=== PATIENT | female | born 1965 | race Caucasian/White ===

== ENCOUNTER 2022-03-04 07:00 | Day surgery (SDC) | payer OTHER ==
[2022-02-27 14:52] VITALS: BMI 22.2
[~2022-03-04 07:00] MED LIST: ACETAMINOPHEN TAB 500 MG TAB PO PRN; HEPARIN SODIUM,PORCINE/PF 5,000 UNIT/0.5 ML SYRINGE SQ PRN; Pre Op ABX Message 1 EACH MISC MISCELLANE ONE
[2022-03-04] MEDS ORDERED: LACTATED RINGERS 1,000 ML IV SCH (07:16)
[2022-03-04] MEDS ORDERED: BUPIVACAIN-EPI 0.25%-1:200,000 30 ML VIAL SQ ONE ×2 (07:25→08:05)
[2022-03-04 07:30] VITALS: TEMP 97.7
[2022-03-04] MEDS ORDERED: ONDANSETRON 4 MG/2 ML VIAL ONE (07:32)
[2022-03-04] MEDS ORDERED: KETAMINE 10 MG/ML 20 ML VIAL ONE (07:38)
[2022-03-04] MEDS ORDERED: PROPOFOL 10 MG/ML 20 ML VIAL IV ONE (07:38)
[2022-03-04] MEDS ORDERED: MIDAZOLAM 2 MG/2 ML VIAL ONE (07:38)
[2022-03-04] MEDS ORDERED: ONDANSETRON 4 MG/2 ML VIAL IVP ONE (07:38)
[2022-03-04] MEDS ORDERED: fentaNYL (PF) 50 MCG/ML 2 ML AMP ONE (07:38)
--- NOTE | 2022-03-04 07:48 | P.GSHP ---
History of Present Illness H&P Date: 03/04/22 Chief Complaint: Multiple right arm lipomas Is a 56-year-old female who presents today for excision of multiple right arm lipomas. Patient has had lipomas present all over body. Patient is developed tender pressure points due to lipomas in her right arm. She presents today for excision of lipomas. Patient's lipomas measured approximately 1-3 cm each there are multiple lipomas on her upper and lower arms. Past Medical History Past Medical History: Hypertension Additional Past Medical History / Comment(s): Vertigo. History of Any Multi-Drug Resistant Organisms: None Reported Past Surgical History: Orthopedic Surgery Additional Past Surgical History / Comment(s): Lipomas removed, right knee surgery, wisdom teeth extracted. Past Anesthesia/Blood Transfusion Reactions: Motion Sickness Additional Past Anesthesia/Blood Transfusion Reaction / Comment(s): Vertigo. Past Psychological History: No Psychological Hx Reported Smoking Status: Current every day smoker Past Alcohol Use History: Rare Additional Past Alcohol Use History / Comment(s): Has been smoking for 30 yrs, 1/2 ppd. Past Drug Use History: None Reported - Past Family History Mother Family Medical History: No Reported History Medications and Allergies Home Medications Medication Instructions Recorded Confirmed Type Cyclobenzaprine [Flexeril] 10 mg PO DIRECTED PRN 02/27/22 03/04/22 History Lisinopril-Hctz 10-12.5 mg 1 tab PO QAM 02/27/22 03/04/22 History [Zestoretic 10-12.5] Meloxicam [Mobic] 15 mg PO DAILY PRN 02/27/22 03/04/22 History PARoxetine HCL [Paxil] 20 mg PO QAM 02/27/22 03/04/22 History Zolpidem Tartrate [Ambien] 5 mg PO HS PRN 02/27/22 03/04/22 History Allergies Allergy/AdvReac Type Severity Reaction Status Date / Time hydromorphone [From Dilaudid] Allergy Nausea & Verified 03/04/22 07:24 Vomiting Surgical - Exam Vital Signs Temp Pulse Resp BP Pulse Ox 97.7 F 96 18 161/91 98 03/04/22 07:28 03/04/22 07:28 03/04/22 07:28 03/04/22 07:28 03/04/22 07:28 - General well developed, well nourished, no distress - Eyes PERRL - ENT normal pinna - Neck no masses - Respiratory normal expansion - Cardiovascular Rhythm: regular - Abdomen Abdomen: soft, non tender - Integumentary Multiple lipomas right arm. The lipomas measured 1-3 cm in diameter. They're present on the upper and lower arm. Assessment and Plan Assessment: Right arm lipomas. Patient will undergo excision.
--- NOTE | 2022-03-04 08:23 | P.OP ---
Date of Procedure: 03/04/22 Preoperative Diagnosis: Multiple right arm lipoma Postoperative Diagnosis: Multiple right arm lipomas Procedure(s) Performed: Excision of multiple right arm lipomas Anesthesia: MAC Surgeon: Polo Novoa Estimated Blood Loss (ml): 5 Pathology: other (Multiple right arm lipomas) Condition: stable Disposition: PACU Description of Procedure: The patient was placed the operative table in supine position. She received IV sedation. Her right arm was prepped and draped usual sterile fashion. The patient had multiple lipomas over her right arm. 5 of the basis of holes were marked in the preoperative hold area there were located on the right lower medial and lateral aspect of the right arm. Each lipoma was anesthetized 1% local Xylocaine. The lipomas measured prostate 1-3 cm each. The lipomas were dissected free after the skin was incised with blunt and sharp dissection electrocautery.. The skin was closed interrupted 3-0 Monocryl suture. Each lipoma was dissected free and sent to pathology in identical fashion. Dermabond was applied. Patient top she will was sent to recovery room in stable condition..
[2022-03-04] MEDS ORDERED: ENALAPRILAT 1.25 MG/ML 1 ML VIAL IV ONE (08:53)
[2022-03-04] MEDS ORDERED: ENALAPRILAT 1.25 MG/ML 1 ML VIAL ONE (08:54)
[2022-03-04 09:02] VITALS: RESP 16
[2022-03-04 09:15] VITALS: BP 165/91; PULSE 87
== END 2022-03-04 09:31 | disposition home or self-care (01) ==
LOC: OR 07:00
PROVIDERS: ATTEND Surgery
DX: D17.21 Benign lipomatous neoplasm of skin and subcutaneous tissue of right arm (principal); I10 Essential (primary) hypertension; F17.210 Nicotine dependence, cigarettes, uncomplicated; R42 Dizziness and giddiness; Z98.890 Other specified postprocedural states; Z86.59 Personal history of other mental and behavioral disorders; Z88.5 Allergy status to narcotic agent; Z79.899 Other long term (current) drug therapy
CPT/HCPCS: 25073; 88304; J2250; J2405; J3010; J2704; J1644

== ENCOUNTER → 2022-04-19 | Outpatient (CLI) | payer OTHER ==
--- NOTE | 2022-04-19 13:32 | MR ---
EXAMINATION TYPE: MR lumbar spine wo con DATE OF EXAM: 04/19/2022 11:56 AM COMPARISON: Lumbar radiograph on 422 10/15/2021.. CLINICAL INDICATION:Female, 57 years old with history of M47.26 Lumbar scoliosis with lumbar radiculo brisa; TECHNIQUE: Multi planar, multi sequence imaging was performed utilizing: T1-weighted, T2-weighted, a nd turbo inversion recovery imaging of the lumbar spine. IV Contrast: None FINDINGS: Alignment: The lumbar vertebral bodies have preserved heights with straightening of the spine. Cord: The conus medullaris and the distal spinal cord appear unremarkable with regards to their signa l intensity and morphology. Bones/Discs: Multilevel Modic endplate changes are noted throughout the spine. Probable L4 vertebral body hemangioma. Reactive bony edema at the adjoining endplates of L3 and L4. Multilevel degenerative disc disease is noted and most pronounced at the L3-L4. Multilevel disc desiccation is present. L1-L2: No significant disc pathology. Spinal canal is patent.. Facet joint arthropathy with mild neur al foraminal stenosis. L2-L3: Disc bulge and facet joint arthropathy without significant canal stenosis and mild bilateral n eural foraminal stenosis. L3-L4: Disc bulge and facet joint arthropathy with mild spinal canal stenosis and moderate bilateral neural foraminal stenosis. L4-L5: Disc bulge and facet joint arthropathy with mild spinal canal stenosis and mild to moderate bi lateral neural foraminal stenosis. L5-S1: No significant spinal canal stenosis. Facet arthropathy with moderate to severe right and mild left neural foraminal stenosis Other findings: Atherosclerosis of the arterial vasculature. IMPRESSION: 1. No definitive evidence of disc herniation or significant spinal canal stenosis. 2. Multilevel disc degeneration with associated osteoarthritic changes with scattered neural foramin al stenosis, worse at right L5-S1 with moderate to severe neural foraminal stenosis.
== END | disposition home or self-care (01) ==
LOC: MERGE 02-05 11:15 → RADMRIMAIN 11:08
PROVIDERS: ATTEND Nurse Practitioner Family
DX: M51.37 Other intervertebral disc degeneration, lumbosacral region (principal); M47.816 Spondylosis without myelopathy or radiculopathy, lumbar region; M48.061 Spinal stenosis, lumbar region without neurogenic claudication
CPT/HCPCS: 72148

== ENCOUNTER 2022-05-22 06:37 | Day surgery (SDC) | payer OTHER ==
[2022-05-20 11:20] VITALS: BMI 22.3
[2022-05-22] MEDS ORDERED: MIDAZOLAM 2 MG/2 ML VIAL IV PRN (06:40)
[2022-05-22] MEDS ORDERED: DEXAMETHASONE SOD PHOSPHATE 4 MG/ML 1 ML VIAL IV ONE (06:40)
[2022-05-22] MEDS ORDERED: SCOPOLAMINE 1 MG/72 HR PATCH TRANSDERM ONE (06:40)
[2022-05-22] MEDS ORDERED: ONDANSETRON 4 MG/2 ML VIAL IVP ONE (06:40)
[2022-05-22] MEDS ORDERED: LACTATED RINGERS 1,000 ML IV SCH (06:40)
[2022-05-22] MEDS ORDERED: fentaNYL (PF) 50 MCG/ML 2 ML AMP IV PRN (07:00)
[2022-05-22] MEDS ORDERED: LIDOCAINE 1% (10MG/ML) FOR IV START INTRADERMA ONE (07:35)
[2022-05-22] MEDS ORDERED: PHENYLEPHRINE-0.9% NACL SYG 1,000 MCG/10 ML SYRINGE ONE (08:06)
[2022-05-22] MEDS ORDERED: LIDOCAINE 2% INJ 20 MG/ML (2 ML VIAL) ONE (08:06)
[2022-05-22] MEDS ORDERED: MIDAZOLAM 2 MG/2 ML VIAL ONE (08:06)
[2022-05-22] MEDS ORDERED: fentaNYL (PF) 50 MCG/ML 2 ML AMP ONE (08:06)
[2022-05-22] MEDS ORDERED: PROPOFOL 10 MG/ML 20 ML VIAL IV ONE (08:06)
[2022-05-22] MEDS ORDERED: LACTATED RINGERS 1,000 ML IV ONE (08:09)
[2022-05-22] MEDS ORDERED: SODIUM CHLORIDE 0.9% 50 ML with ceFAZolin 2,000 MG IV ONE ×2 (08:22)
[2022-05-22] MEDS ORDERED: BUPIVACAIN-EPI 0.25%-1:200,000 30 ML VIAL SQ ONE (08:23)
--- NOTE | 2022-05-22 08:41 | P.GSHP ---
History of Present Illness H&P Date: 05/22/22 Chief Complaint: Multiple left lower arm lipomas Is a 57-year-old female who has issues with lipomas all over body. Patient presents today for excision of 6 lipomas over left lower arm. The lipomas measured 1-3 cm in diameter. Past Medical History Past Medical History: Hypertension Additional Past Medical History / Comment(s): Vertigo. MULTIPLE LIPOMAS History of Any Multi-Drug Resistant Organisms: None Reported Past Surgical History: Orthopedic Surgery Additional Past Surgical History / Comment(s): Lipomas removed, right knee surgery, wisdom teeth extracted. Past Anesthesia/Blood Transfusion Reactions: Motion Sickness Additional Past Anesthesia/Blood Transfusion Reaction / Comment(s): Vertigo. Smoking Status: Current every day smoker - Past Family History Mother Family Medical History: Cancer Medications and Allergies Home Medications Medication Instructions Recorded Confirmed Type Cyclobenzaprine [Flexeril] 10 mg PO DIRECTED PRN 02/27/22 05/20/22 History Lisinopril-Hctz 10-12.5 mg 1 tab PO QAM 02/27/22 05/20/22 History [Zestoretic 10-12.5] Meloxicam [Mobic] 15 mg PO DAILY PRN 02/27/22 05/20/22 History PARoxetine HCL [Paxil] 20 mg PO QAM 02/27/22 05/20/22 History Zolpidem Tartrate [Ambien] 5 mg PO HS PRN 02/27/22 05/20/22 History Allergies Allergy/AdvReac Type Severity Reaction Status Date / Time hydromorphone [From Dilaudid] Allergy Nausea & Verified 05/22/22 07:16 Vomiting Surgical - Exam Vital Signs Temp Pulse Resp BP Pulse Ox 97.7 F 96 16 141/93 99 05/22/22 07:35 05/22/22 07:35 05/22/22 07:35 05/22/22 07:35 05/22/22 07:35 - General well developed, well nourished, no distress - Eyes PERRL - ENT normal pinna - Neck no masses - Respiratory normal expansion - Cardiovascular Rhythm: regular - Abdomen Abdomen: soft, non tender - Integumentary Multiple left lower arm lipomas. The lipomas around the lateral aspect left arm. It measured 1-3 cm diameter. Assessment and Plan Assessment: Multiple left arm lipomas. Patient will undergo excision.
--- NOTE | 2022-05-22 08:44 | P.OP ---
Date of Procedure: 05/22/22 Preoperative Diagnosis: Left arm lipomas Postoperative Diagnosis: Left arm lipoma 6 Procedure(s) Performed: Excision of left arm lipoma 6 Anesthesia: CECILIAA Surgeon: Polo Novoa Estimated Blood Loss (ml): 5 Pathology: other (Left arm lipoma 6) Condition: stable Disposition: PACU Description of Procedure: The patient's placed on the operative table in supine position. She received LMA general anesthesia. Her left arm was prepped and draped in the usual sterile fashion. Patient multiple lipomas of her left lower arm. The lipomas were on the dorsal surface. The lipomas measured prostate 1-3 cm. The skin incision sites were anesthetized 1% local Xylocaine. And then the lipomas were dissected in identical fashion. The skin was incised at each lipoma site. The lipoma was then dissected free using blunt and sharp dissection with cautery. The skin was then closed with 3-0 Monocryl suture. Dermabond was applied. This was done in identical fashion for each lipoma. The specimens of pathology. Patient tolerated the procedure well.
[2022-05-22 08:52] VITALS: TEMP 97
[2022-05-22 09:28] VITALS: RESP 18
[2022-05-22 09:44] VITALS: BP 157/95; PULSE 87
== END 2022-05-22 09:55 | disposition home or self-care (01) ==
LOC: OR 06:37
PROVIDERS: ATTEND Surgery
DX: D17.22 Benign lipomatous neoplasm of skin and subcutaneous tissue of left arm (principal); I10 Essential (primary) hypertension; F17.200 Nicotine dependence, unspecified, uncomplicated; Z98.890 Other specified postprocedural states; Z79.899 Other long term (current) drug therapy; Z79.1 Long term (current) use of non-steroidal anti-inflammatories (NSAID); Z88.5 Allergy status to narcotic agent
CPT/HCPCS: 88304; 11401; J2250; J1100; J2405; J0690; J3010; J2370; J2704; J1644; J2001

== ENCOUNTER 2022-07-18 18:48 | Emergency (ER) | payer OTHER ==
[2022-07-18 19:04] VITALS: RESP 18; TEMP 98.6
[2022-07-18] MEDS ORDERED: LIDOCAINE 5% PATCH TOPICAL ONE (19:16)
--- NOTE | 2022-07-18 19:25 | ED ---
Fall HPI - General Chief Complaint: Head Injury Stated Complaint: Fall,Head Injury Time Seen by Provider: 07/18/22 19:00 Source: patient, RN notes reviewed Mode of arrival: ambulatory - History of Present Illness Initial Comments: This is a 57-year-old female who presents to the emergency department for a fall. States that she slipped on ice and fell down approximately 4 steps. She landed on her left side, states that she hit the left side of her head. Also has pain to the left ribs, left hip, and lower back. She is still able to walk without difficulty. She has not taken anything to treat her pain at this time. Denies any loss of consciousness. She is not on any blood thinners. Denies any fevers, chills, sore throat, cough, dyspnea, chest pain, palpita tions, nausea, vomiting, or diarrhea. MD Complaint: fall Place Fall Occurred: home Loss of Consciousness: none Prolonged Down Time?: no Symptoms Prior to Fall: none Context: tripped/slipped - Related Data Home Medications Medication Instructions Recorded Confirmed Cyclobenzaprine [Flexeril] 10 mg PO DIRECTED PRN 02/27/22 05/20/22 Lisinopril-Hctz 10-12.5 mg 1 tab PO QAM 02/27/22 05/20/22 [Zestoretic 10-12.5] Meloxicam [Mobic] 15 mg PO DAILY PRN 02/27/22 05/20/22 PARoxetine HCL [Paxil] 20 mg PO QAM 02/27/22 05/20/22 Zolpidem Tartrate [Ambien] 5 mg PO HS PRN 02/27/22 05/20/22 Previous Rx's Medication Instructions Recorded Acetaminophen-Codeine 300-30mg 1 tab PO Q6H PRN 3 Days #12 tablet 07/18/22 [Tylenol w/codeine #3] Meclizine HCl [Dramamine] 25 mg PO Q8H PRN #20 tab 07/18/22 Ondansetron Odt [Zofran Odt] 4 mg PO Q8HR PRN #15 tab 07/18/22 Allergies Allergy/AdvReac Type Severity Reaction Status Date / Time hydromorphone [From Dilaudid] Allergy Nausea & Verified 07/18/22 19:05 Vomiting Review of Systems ROS Statement: Those systems with pertinent positive or pertinent negative responses have been documented in the HPI. ROS Other: All systems not noted in ROS Statement are negative. Past Medical History Past Medical History: Hypertension Additional Past Medical History / Comment(s): Vertigo. MULTIPLE LIPOMAS History of Any Multi-Drug Resistant Organisms: None Reported Past Surgical History: Orthopedic Surgery Additional Past Surgical History / Comment(s): Lipomas removed, right knee surgery, wisdom teeth extracted. Past Anesthesia/Blood Transfusion Reactions: Motion Sickness Additional Past Anesthesia/Blood Transfusion Reaction / Comment(s): Vertigo. Past Psychological History: No Psychological Hx Reported Smoking Status: Current every day smoker Past Alcohol Use History: Occasional Past Drug Use History: None Reported - Past Family History Mother Family Medical History: Cancer General Exam Limitations: no limitations General appearance: alert, in no apparent distress Head exam: Present: other (Minor abrasion and hematoma to the left side of the forehead. No active bleeding.) Eye exam: Present: normal appearance, PERRL, EOMI. Absent: scleral icterus, conjunctival injection, periorbital swelling ENT exam: Present: TM's normal bilaterally, normal external ear exam Respiratory exam: Present: normal lung sounds bilaterally. Absent: respiratory distress, wheezes, rales, rhonchi, stridor Cardiovascular Exam: Present: regular rate, normal rhythm, normal heart sounds. Absent: systolic murmur, diastolic murmur, rubs, gallop, clicks Extremities exam: Present: other (Mild tenderness to palpation of the left hip. No obvious deformities. No internal or external rotation of the leg. Full active and passive range of motion. Normal gait. 2+ dorsalis pedis and tibialis posterior pulses.) Back exam: Present: other (Tenderness to palpation over the right side of the lumbosacral spine. No overlying ecchymosis.) Neurological exam: Present: alert, oriented X3, CN II-XII intact Psychiatric exam: Present: normal affect, normal mood Skin exam: Present: warm, dry, intact, normal color. Absent: rash Course Vital Signs 07/18/22 07/18/22 18:57 21:23 Temperature 98.6 F Pulse Rate 112 H 95 Respiratory 18 18 Rate Blood Pressure 161/98 165/90 O2 Sat by Pulse 100 99 Oximetry Medical Decision Making - Medical Decision Making This is a 57-year-old female who presents to the emergency department for a fall. Was pt. sent in by a medical professional or institution? @ -No Did you speak to anyone other than the patient for history? @ -None Did you review nursing and triage notes? @ -Yes, and I agree, it is accurate with regards to the patient's symptoms. Were old charts reviewed? @ -No Differential Diagnosis? @ -Differential Diagnosis Head Injury: Contusion, hematoma, intracranial hemorrhage, skull fracture, whiplash, concussion, this is not meant to be an all-inclusive list. -Differential Back Pain: Strain, fracture, contusion, herniated disc, this is not meant to be an all- inclusive list. X-rays interpreted by me (1pt min.)? @ -X-ray of the lumbosacral spine, left hip, and left ribs obtained. My interpretation identifies no acute fractures or dislocations on any of the imaging. CT interpreted by me (1pt min.)? @ -Computed tomography scan of the brain and c-spine obtained. My interpretation identifies no evidence of an acute intracranial hemorrhage, skull fracture, or cervical spine fracture. What testing was considered but not performed? (CT, X-rays, U/S, labs)? Why? @ -None What meds were considered but not given? Why? @ -I offered ibuprofen or Tylenol, however the patient declined because she states that she has not eaten and cannot take the medication on an empty stomach. Did you discuss the management of the patient with other professionals? @ -No Did you reconcile home meds? @ -No Was smoking cessation discussed for >3mins.? @ -No Was critical care preformed (if so, how long)? @ -No Were there social determinants of health that impacted care today? How? (Homelessness, low income, unemployed, alcoholism, drug addiction, transportation, low edu. Level, literacy, decrease access to med. care, nursing home, rehab)? @ -No Was there de-escalation of care discussed even if they declined? (Discuss DNR or withdrawal of care, Hospice)? @ -No What co-morbidities impacted this encounter? (DM, HTN, Smoking, COPD, CAD, Cancer, CVA, Hep., AIDS, mental health diagnosis, sleep apnea, morbid obesity)? @ -None Was patient admitted / discharged? @ -Discharged. X-rays of the lumbosacral spine, left hip, and left ribs obt ained revealing no acute process. Computed tomography scan of the brain and c- spine obtained as well, also revealing no acute findings. However, the computed tomography scan did identify bilateral parenchymal changes on the lungs and advised nonurgent computed tomography scan follow-up. Findings discussed with the patient, and advised that she discuss follow-up imaging with her primary care provider. She denies any shortness of breath or history of asthma, COPD, or other respiratory illnesses. Lidocaine patch was applied to the lower back with little to no relief in symptoms. She declined any ibuprofen or Tylenol at this time. Patient is instructed to alternate with ibuprofen and Tylenol at home for pain relief and to apply ice to the areas of pain for 10-15 minutes every 2-3 hours for the first 2-3 days followed by heat there afterwards. Given that she has multiple injuries and areas of pain, I'm willing to prescribe a 3 day course of Tylenol #3. Advised she take this sparingly when her pain is the most severe. Additionally, patient states that she started feeling like she was getting vertigo in the examination room. She describes this as a room spinning sensation that is worse with head movements. States that she has had vertigo flareups in the past and this feels the same. She was subsequently given a dose of Antivert and Zofran and a prescription for Zofran and Antivert were provided as well with dosing instructions reviewed. Advised that the Antivert and Tylenol #3 may be sedating and she should take them at night until she knows how they affect her and avoid driving or operating machinery when taking them. We also discussed trying the half somersault maneuver by Dr. Jesi Carvajal for additional vertigo treatment options. Undiagnosed new problem with uncertain prognosis? @ -None Drug Therapy requiring intensive monitoring for toxicity (Heparin, Nitro, Insulin, Cardizem)? @ -None Were any procedures done? @ -None Diagnosis/symptom? @ -Closed head injury Acute, or Chronic, or Acute on Chronic? @ -Acute Uncomplicated (without systemic symptoms) or Complicated (systemic symptoms)? @ -Uncomplicated Side effects of treatment? @ -None Exacerbation, Progression, or Severe Exacerbation] @ -Not applicable Poses a threat to life or bodily function? @ -No Diagnosis/symptom? @ -Fall Acute, or Chronic, or Acute on Chronic? @ -Acute Uncomplicated (without systemic symptoms) or Complicated (systemic symptoms)? @ -Uncomplicated Side effects of treatment? @ -None Exacerbation, Progression, or Severe Exacerbation] @ -Not applicable Poses a threat to life or bodily function? @ -No Diagnosis/symptom? @ -Lower back contusion Acute, or Chronic, or Acute on Chronic? @ -Acute Uncomplicated (without systemic symptoms) or Complicated (systemic symptoms)? @ -Uncomplicated Side effects of treatment? @ -None Exacerbation, Progression, or Severe Exacerbation] @ -Not applicable Poses a threat to life or bodily function? @ -This may impact her function depending on her level of pain. Diagnosis/symptom? @ -Vertigo Acute, or Chronic, or Acute on Chronic? @ -Acute Uncomplicated (without systemic symptoms) or Complicated (systemic symptoms)? @ -Uncomplicated Side effects of treatment? @ -None Exacerbation, Progression, or Severe Exacerbation] @ -Not applicable Poses a threat to life or bodily function? @ -No Return precautions reviewed in depth, the patient is instructed to return to the emergency department with any new, worsening, or concerning symptoms. Patient verbalized understanding. This case was discussed in detail with the attending ED physician, Dr. Vazquez. Presentation, findings, and treatment plan discussed in detail as well. - Radiology Data Radiology results: report reviewed, image reviewed Disposition Clinical Impression: Closed head injury, Fall, Contusion of lower back, Vertigo Disposition: HOME SELF-CARE Instructions (If sedation given, give patient instructions): Vertigo (ED), Head Injury (ED), Benign Paroxysmal Positional Vertigo (ED) Additional Instructions: Return to the emergency department with any new, worsening, or concerning symptoms. Apply ice to the injured areas for 10-15 minutes every 2-3 hours for the first 2-3 days followed by heat there afterwards. Alternate with ibuprofen and Tylenol as needed for pain relief and take the Tylenol #3 sparingly when your pain is the most severe. You can take the meclizine every 6-8 hours as needed for symptoms of vertigo. You can also look up the half somersault maneuver by Dr. Jesi Carvajal on YouTube for additional treatment options. Be aware that the Meclizine may be sedating and you should take it at night until you know how it affects you and avoid driving or operating machinery when taking this. The same is true for the Tylenol #3 as well. The Zofran can be used up to every 8 hours as needed for nausea and vomiting. You can also purchase [id number] lidocaine patches for additional relief. Follow up with your primary care provider in 1-2 days. Prescriptions: Meclizine HCl [Dramamine] 25 mg PO Q8H PRN #20 tab PRN Reason: Vertigo Acetaminophen-Codeine 300-30mg [Tylenol w/codeine #3] 1 tab PO Q6H PRN 3 Days #12 tablet PRN Reason: Pain Ondansetron Odt [Zofran Odt] 4 mg PO Q8HR PRN #15 tab PRN Reason: Nausea And Vomiting Is patient prescribed a controlled substance at d/c from ED?: Yes When asked, does pt state using other controlled substances?: Yes If prescribed controlled substance>3 days was MAPS reviewed?: Prescribed <3 Days Referrals: Ngoc Ambrocio MD [Primary Care Provider] - 1-2 days
--- NOTE | 2022-07-18 19:57 | XR ---
PROCEDURE: XR Hip Complete LT - 2V DATE AND TIME: 07/18/2022 7:36 PM CLINICAL INDICATION: Pain after fall TECHNIQUE: Department protocol COMPARISON: None FINDINGS: There is no fracture or malalignment. The soft tissues are unremarkable. IMPRESSION: NO ACUTE PROCESS.
--- NOTE | 2022-07-18 19:57 | XR ---
PROCEDURE: XR ribs LT w pa chest xray - 5V DATE AND TIME: 07/18/2022 7:36 PM CLINICAL INDICATION: Pain after fall TECHNIQUE: Department protocol 5 views COMPARISON: None FINDINGS: There is no displaced rib fracture or malalignment, and no other fracture or malalignment. Lungs are clear and well expanded. Pleural spaces are negative for pneumothorax or pleural effusion. Cardiomediastinal silhouette is unremarkable. No acute soft tissue findings. IMPRESSION: No acute radiographic process.
--- NOTE | 2022-07-18 20:01 | XR ---
PROCEDURE: XR lumbosacral spine min 5V DATE AND TIME: 07/18/2022 7:36 PM CLINICAL INDICATION: Pain after fall TECHNIQUE: Department protocol COMPARISON: None FINDINGS: There is no fracture or malalignment. No focal skeletal lesions. The paravertebral soft tissues are unremarkable. There is dextrorotatory curvature to the lumbar spine, apex at the L2-3 level. There are severe degen erative facet changes at all levels and moderate degenerative disc changes at all levels. There is st raightening to the lumbar spine. IMPRESSION: NO ACUTE PROCESS.
--- NOTE | 2022-07-18 21:00 | CT ---
EXAMINATION TYPE: CT brain anthony wetzel DATE OF EXAM: 07/18/2022 COMPARISON: NONE HISTORY: extreme vertigo after fall at 4pm CT DLP: 1480.5 mGycm. Automated Exposure Control for Dose Reduction was Utilized. TECHNIQUE: CT scan of the head and cervical spine are performed without contrast. FINDINGS: There is 2 cm subcutaneous hyperdense soft tissue swelling over the high left frontal bone, with the underlying frontal bone negative for fracture. The remainder of the calvarium is negative f or fracture. There is no acute intracranial hemorrhage, mass effect, or midline shift identified. Th e ventricles and sulci are within normal limits in size. The globes are intact and the visualized si nuses are clear. Cervical spine is visualized in its entirety from C1 through upper thoracic levels and demonstrates s atisfactory alignment without evidence of acute fracture or dislocation. Prevertebral soft tissue ap pears within normal limits. The C1-C2 articulation is unremarkable. IMPRESSION: 1. Small subcutaneous hematoma over the left frontal bone. 2. Negative for acute cranial/intracranial process. 3. Negative for cervical spine fracture/malalignment. 4. Incidental biapical lung parenchymal changes noted, would suggest nonurgent follow-up CT chest lencho racterization.
[2022-07-18] MEDS ORDERED: IBUPROFEN 600 MG STARTER PACK 4 TAB BTL PO STA (21:08)
[2022-07-18] MEDS ORDERED: MECLIZINE 12.5 MG TAB PO STA (21:08)
[2022-07-18] MEDS ORDERED: ONDANSETRON 4 MG ODT STARTER PACK 2 TAB BTL PO STA (21:08)
[2022-07-18] MEDS ORDERED: ACET/COD 300 MG/30 MG STARTER PACK 6 TAB BTL PO STA (21:08)
[2022-07-18 21:23] VITALS: BP 165/90; PULSE 95
== END 2022-07-18 21:24 | disposition home or self-care (01) ==
LOC: EC 18:48
DX: S30.0XXA Contusion of lower back and pelvis, initial encounter (principal); S09.90XA Unspecified injury of head, initial encounter; R42 Dizziness and giddiness; I10 Essential (primary) hypertension; F17.200 Nicotine dependence, unspecified, uncomplicated; Z79.899 Other long term (current) drug therapy; Z88.5 Allergy status to narcotic agent; W00.1XXA Fall from stairs and steps due to ice and snow, initial encounter; Y92.009 Unspecified place in unspecified non-institutional (private) residence as the place of occurrence of the external cause
CPT/HCPCS: 99284; 71101; 72110; 73502; 72125; 70450; S0119

== ENCOUNTER → 2022-09-19 | Outpatient (CLI) | payer OTHER ==
[2022-09-19 13:59] VITALS: BP 155/113; PULSE 120; RESP 20; TEMP 98.5
--- NOTE | 2022-09-19 14:11 | P.PAINCN ---
History of Present Illness - Reason for Consult Consult date: 09/19/22 - History of Present Illness This 57 years old female with a chronic history of severe low back pain started in 2020, patient denies any initiating event and she reported that the pain localized in the low back area with radiation to the buttock and lower extremity bilaterally and she feels occasional numbness and tingling sensation pain radiated towards the hip area and then radiated towards the lower extremity, the intensity of the pain increased after she fell in July 2022 and she reported that currently the pain is constant intensity fluctuates between 4/10 increased to 9/10 with any activity, he denies any fever or night sweats denies any change in the bowel movement or urination she denies any motor or sensory deficits, currently she is on Flexeril and Tylenol 3 which is helping to some degree but she is hoping that she'll get better pain relief than the pain medications Past Medical History Past Medical History: Hypertension Additional Past Medical History / Comment(s): Vertigo. MULTIPLE LIPOMAS History of Any Multi-Drug Resistant Organisms: None Reported Past Surgical History: Orthopedic Surgery Additional Past Surgical History / Comment(s): Lipomas removed, right knee surgery, wisdom teeth extracted. Past Anesthesia/Blood Transfusion Reactions: Motion Sickness Additional Past Anesthesia/Blood Transfusion Reaction / Comm: Vertigo. Smoking Status: Current every day smoker - Past Family History Mother Family Medical History: Cancer Medications and Allergies Home Medications Medication Instructions Recorded Confirmed Type Cyclobenzaprine [Flexeril] 10 mg PO DIRECTED PRN 02/27/22 05/20/22 History Lisinopril-Hctz 10-12.5 mg 1 tab PO QAM 02/27/22 05/20/22 History [Zestoretic 10-12.5] Meloxicam [Mobic] 15 mg PO DAILY PRN 02/27/22 05/20/22 History PARoxetine HCL [Paxil] 20 mg PO QAM 02/27/22 05/20/22 History Zolpidem Tartrate [Ambien] 5 mg PO HS PRN 02/27/22 05/20/22 History Acetaminophen-Codeine 300-30mg 1 tab PO Q6H PRN 3 Days #12 tablet 07/18/22 Rx [Tylenol w/codeine #3] Meclizine HCl [Dramamine] 25 mg PO Q8H PRN #20 tab 07/18/22 Rx Ondansetron Odt [Zofran Odt] 4 mg PO Q8HR PRN #15 tab 07/18/22 Rx Allergies Allergy/AdvReac Type Severity Reaction Status Date / Time hydromorphone [From Dilaudid] Allergy Nausea & Verified 07/18/22 19:05 Vomiting Physical Exam Vitals: Vital Signs Temp Pulse Resp BP Pulse Ox 09/19/22 13:48 98.5 F 120 H 20 155/113 100 Physical Examinations : -Constitutiona : Cooperative , not in acute distress . -HEENT : nech : supple , no Lymphadenopathy , normal thyroid size . : eyes : no ptosis , no icterus, no photophobia . - neurologic : Cranial nerve II to XII intact , no focal neurological deffecit . -psychatric : alert , oriented X 3 , appropriate affect , intact judgment and insight . -Lymphatic : no Lymphadenopathy . - musculoskeltal : Cervical Spine motor stregnth in the deltoid and biceps, normal right side , normal Left side motor stregnth biceps and the wrist extensors normal right side ,normal left side Lumber spine moter stegnth lower extremities ,thigh and legs 5/5 Right side , 5/5 Left side Normal sensation in the lower extremity bilaterlly deep tendon reflexes : normal Knee Jerk , normal ankle Jerk lumber facet Loading Test =positive Right , positive Left Range of motion of the lumbar spine Flexion 30 degrees, extension 10 degrees strait leg raising test = positive at 45 degree Fabere test= positive Right , and positive LT . Sever tenderness over the Sacroiliac joint on the Right , and Left sides Gaenslen test= positive right ,and positive left . Results Comments: MRI of the lumbar spine done in April 2022" of the lumbar degenerative disc disease multilevel lumbar facet arthropathy and multilevel foraminal stenosis more prominent/severe at L5-S1 Assessment and Plan Plan: Assessment and plan= 1-lumbar radiculopathy. 2- lumbar degenerative disc disease , 3-lumbar spondylosis with lumbar facet arthropathy .4-lumbar foraminal stenosis Patient will be good candidate bilateral transforaminal epidural steroid injection at L5-S1 I have spent 35 minutes on patient care today. The time was used to review the medical records including relevant urine studies and Prescription history (MAPs), review of the available imaging, evaluation and examination of the patient, coordination of care with the medical staff and if applicable referring physicians, as well as creation of the medical record. Maps were checked and appropriate, opioid start talking form is on file and updated, urine drug screens of been appropriate and have been reviewed. , Time with Patient: Greater than 30 PQRS Measure Charge Sheet Measure #130: Documentation of Current Meds in Medical Chart: Patient's medications documented in chart Measure #226: Tobacco Use: Screen & Cessation Intervention: Pt screened for tobacco use AND intervention given Measure #111: Pneumonia Vaccination: Pneumococcal vaccine NOT administered or previously given Measure #47: Advance Care Plan: Advance care planning discussed & documented, pt chose/unable to give Measure #412: Opioid Treatment Agreement: No documentation of signed opioid treatment agreement Measure #408: Opioid Therapy Follow-up Evaluation: Patient had NO f/u eval minimum every 3 months during opioid therapy Measure #317: Preventitive Care & Scrn High Bld Press & F/U: Pre-hypertensive or hypertensive BP documented, pt will f/u with PCP Measure #128: Body Mass Index (BMI) Screening & Follow-up: BMI documented ABOVE normal parameters - f/u documented Measure #131: Pain Assessment & Follow-up: Pain positive & plan documented, Follow-up scheduled Measure #431: Unhealthy Alcohol Use Preventative Care & Scrn: Patient not identified as an unhealthy alcohol user Mode of Arrival: Ambulatory - Pain Location Lower Back Non-Pharmacological Interventions: Inactivity Pharmacological Interventions: Scheduled Medication PQRS Narrative: Blood Pressure 155/113 Pain Intensity [Lower Back] 4 Scale Used Numeric (1 - 10) Hx Alcohol Use (MH) No Home Medications: Ambulatory Orders Cyclobenzaprine [Flexeril] 10 mg PO DIRECTED PRN 02/27/22 Lisinopril-Hctz 10-12.5 mg [Zestoretic 10-12.5] 1 tab PO QAM 02/27/22 Meloxicam [Mobic] 15 mg PO DAILY PRN 02/27/22 PARoxetine HCL [Paxil] 20 mg PO QAM 02/27/22 Zolpidem Tartrate [Ambien] 5 mg PO HS PRN 02/27/22 Acetaminophen-Codeine 300-30mg [Tylenol w/codeine #3] 1 tab PO Q6H PRN 3 Days #12 tablet 07/18/22 Meclizine HCl [Dramamine] 25 mg PO Q8H PRN #20 tab 07/18/22 Ondansetron Odt [Zofran Odt] 4 mg PO Q8HR PRN #15 tab 07/18/22
== END ==
LOC: PNWHC3 13:33
PROVIDERS: ATTEND Specialist
DX: M51.36 Other intervertebral disc degeneration, lumbar region (principal); M48.061 Spinal stenosis, lumbar region without neurogenic claudication; Z88.5 Allergy status to narcotic agent; I10 Essential (primary) hypertension; F17.200 Nicotine dependence, unspecified, uncomplicated; M41.06 Infantile idiopathic scoliosis, lumbar region; M47.26 Other spondylosis with radiculopathy, lumbar region
CPT/HCPCS: 99211

== ENCOUNTER → 2022-10-08 | Outpatient (CLI) | payer OTHER ==
--- NOTE | 2022-10-08 15:37 | CT ---
EXAMINATION TYPE: CT chest wo con DATE OF EXAM: 10/08/2022 COMPARISON: CT cervical spine 07/18/2022 HISTORY: 57-year-old female [id number], J984, Biapical lung parenchymal changes. TECHNIQUE: Contiguous axial scanning of the chest without IV contrast. Coronal and sagittal reconstru ctions performed. CT DLP: 364.0 mGycm Automated exposure control for dose reduction was used. FINDINGS: Bilateral breast implants. Heart normal size without pericardial effusion. Aorta normal caliber with conventional arch vessel branching anatomy. No thoracic lymph adenopathy by CT size criteria. Mild bronchial wall thickening. 8 mm left upper lobe pulmonary nodule, axial image 16. Biapical pleur al parenchymal scarring is noted. Irregular appearance at the right apex, axial image 12 in the reass essed at follow-up. No consolidation or pleural effusion. Visualized upper abdomen shows no gross adenopathy. Bones: No osseous destructive process. IMPRESSION: 1. MILD BRONCHIAL WALL THICKENING SUGGESTING BRONCHITIS OR CHRONIC ASTHMA. 2. BIAPICAL PLEURAL PARENCHYMAL SCARRING ASYMMETRICALLY IRREGULAR AT THE RIGHT APEX. ADDITIONAL 8 MM LEFT UPPER LOBE PULMONARY NODULE. FINDINGS RELATIVELY SIMILAR FROM 3 MONTHS AGO. ONGOING SIX-MONTH FO LLOW-UP CT TO REASSESS.
--- NOTE | 2022-10-10 19:25 | BD ---
EXAMINATION TYPE: Axial Bone Density DATE OF EXAM: 10/08/2022 CLINICAL HISTORY: 57 years old Female. ICD-10 CODE: Z13.820 Screening for osteoporosis Height: 70 Weight: 175 FRAX RISK QUESTIONS: Family History (Parent hip fracture): no History of Fracture in Adulthood: yes, lt forearm 2006 Secondary Osteoporosis: no Current Tobacco Use: yes RISK FACTORS HISTORY OF: History of Wrist Fracture: yes left When: 2006 Family History of Osteoporosis: no Active: yes Diet low in dairy products/other sources of calcium: yes Postmenopausal woman: yes, age 49 Lost more than 2 inches in height since high school: no Frequent falls: no MEDICATIONS: Additional Medications: yes hbp meds, ssri meds, EXAM MEASUREMENTS: Bone mineral densitometry was performed using the [employer] (Inspect Manager) System. Bone mineral density as measured about the Lumbar spine is: ----- L1-L4(G/cm2): 1.537 T Score Values are as follows: ----- L1: 2.1 ----- L2: 2.3 ----- L3: 3.8 ----- L4: 3.4 ----- L1-L4: 3.0 Z Score Values are as follows: ----- L1: 2.7 ----- L2: 2.8 ----- L3: 4.3 ----- L4: 4.0 ----- L1-L4: 3.5 Bone mineral density baseline Bone mineral density about the R hip (g/cm2): 1.085 Bone mineral density about the L hip (g/cm2): 1.002 T Score values are as follows: -----R Neck: -0.6 -----L Neck: -0.6 -----R Total: 0.6 -----L Total: 0.0 Z Score values are as follows: -----R Neck: 0.2 -----L Neck: 0.3 -----R Total: 1.1 -----L Total: 0.4 Bone mineral density baseline FRAX%s: The graph provided illustrates a 10.4% chance for a major osteoporotic fx and a 0.7% chance f or the hips probability for fx in 10 years time. IMPRESSION: Normal (Values between +1 and -1 indicate normal bone mass). Consider repeating this study in 5 year s or sooner if there is some new clinical indication. NOTE: T-SCORE=SD OF THE YOUNG ADULT MEAN.
--- NOTE | 2022-11-04 09:33 | MM ---
Reason for Exam: Screening (asymptomatic). Patient History: Menarche at age 16. First Full-Term at age 26. Postmenopausal. 02/29/2016, Bilateral Implants. Risk Values: Luzma 5 year model risk: 1.3%. NCI Lifetime model risk: 8.0%. Tissue Density: The breast tissue is heterogeneously dense. This may lower the sensitivity of mammography. Findings: Analyzed By CAD. Bilateral retropectoral silicone implants are demonstrated. There is bilateral nodularity, an area approximately 9:00 position right breast middle depth. 2 areas superior and inferior left MLO view at a middle depth. No clear correlate on the left CC view, probably obscured by dense tissues. Further evaluation is recommended as well as ultrasound. No suspicious microcalcification or other discrete abnormality is seen. Overall Assessment: Incomplete: need additional imaging evaluation, BI-RAD 0 Management: Special View Mammogram of both breasts. Diagnostic Breast Ultrasound of both breasts. Additional spot 3-D views on both sides including 3 lateral views. Additional whole bilateral breast ultrasounds given the dense tissues. [facility] will attempt to contact patient to return for supplemental views and ultrasound if indicated. Electronically signed and approved by: Christie Wharton M.D. Radiologist
== END | disposition home or self-care (01) ==
LOC: RADCTMAIN 14:10
PROVIDERS: ATTEND Family Medicine
DX: Z12.31 Encounter for screening mammogram for malignant neoplasm of breast (principal); Z13.820 Encounter for screening for osteoporosis; J98.4 Other disorders of lung; J98.09 Other diseases of bronchus, not elsewhere classified; R91.1 Solitary pulmonary nodule; R93.89 Abnormal findings on diagnostic imaging of other specified body structures; Z78.0 Asymptomatic menopausal state
CPT/HCPCS: 71250; 77067; 77080

== ENCOUNTER 2022-10-15 12:48 | Day surgery (SDC) | payer OTHER ==
[~2022-10-15 12:48] MED LIST changes: -ACETAMINOPHEN TAB 500 MG TAB PO PRN; -HEPARIN SODIUM,PORCINE/PF 5,000 UNIT/0.5 ML SYRINGE SQ PRN; +LACTATED RINGERS 1,000 ML IV SCH; -Pre Op ABX Message 1 EACH MISC MISCELLANE ONE
[2022-10-15 13:03] VITALS: TEMP 97.5
[2022-10-15] MEDS ORDERED: DEXAMETHASONE SOD PHOSPHATE 10 MG/ML 1 ML VIAL ONE (13:12)
[2022-10-15] MEDS ORDERED: IOPAMIDOL M200 10 ML VIAL ONE (13:12)
[2022-10-15] MEDS ORDERED: MIDAZOLAM 2 MG/2 ML VIAL ONE (13:12)
[2022-10-15] MEDS ORDERED: fentaNYL (PF) 50 MCG/ML 2 ML AMP ONE (13:12)
--- NOTE | 2022-10-15 13:27 | P.PCN ---
Date of Procedure: 10/15/22 Operative Findings: PREOPERATIVE DIAGNOSIS: Lumbar radiculopathy POSTOPERATIVE DIAGNOSIS: Lumbar radiculopathy PROCEDURE 1. Transforaminal epidural steroid injection under fluoroscopic guidance bilateral at L5-S1 2. Lumbar epidurogram IMAGING Fluoroscopy was used, images where saved to the medical record ANESTHESIA: Medication Administered by: Nurse Sedation Type: Moderate sedation Sedation Supervision start time: 1313 Sedation Supervision end time: 1326 PROCEDURE DESCRIPTION / TECHNIQUE: The patient was seen and identified in the preoperative area. Risks, benefits, complications, and alternatives were discussed with the patient. The patient agreed to proceed with the procedure and signed the consent, vital signs were stable prior to the procedure. Patient was taken to the OR and time out was completed. The patient was placed in the prone position on procedure table and a pillow was placed under the abdomen to reduce lumbar lordosis. The lumbosacral area was prepped and draped in the usual sterile fashion. Vital signs were closely monitored during the procedure. Conscious sedation was used. Using oblique fluoroscopy, the chin of the "Florentino dog" at the pedicle and the skin and deeper tissues just below was localized with 1% lidocaine. Subsequently, a 22-gauge 3.5-inch spinal needle was advanced under a tunneled view fluoroscopic guidance just underneath the chin of the "Florentino dog". Under lateral fluoroscopy, the needle was then advanced to the posterior border interforaminal space. After negative aspiration of CSF and blood and with no paresthesias, 1 mL of Omnipaque-240 contrast dye was injected excellent epidurogram. Subsequently, a solution totalling 2ml of dexamethasone and PFNS was injected after negative aspiration (total of 10mg of dexamethasone was used). The needle was removed intact. COMPLICATIONS: None DISPOSITION: The patient was placed in a supine position and transferred to the recovery area in a stable condition for observation. There was no evidence of lower extremity motor or sensory deficit after the procedure. Patient was discharged from the recovery room after meeting discharge criteria. Home discharge instructions were given to the patient by the staff. The patient was reexamined prior to discharge. Follow up as directed.
[2022-10-15] MEDS ORDERED: IV FLUID CONTINUATION 700 ML IV ONE (13:32)
[2022-10-15 13:41] VITALS: RESP 16
[2022-10-15 13:51] VITALS: BP 151/98; PULSE 88
--- NOTE | 2022-10-15 13:56 | FL ---
EXAMINATION TYPE: FL guided pain mgmt statistic DATE OF EXAM: 10/15/2022 HISTORY: Fluoroscopy time Total dose area product (DAP) in mGy*cm? (or similar): .89340 DAP IMPRESSION: 1. Fluoroscopy time.
== END 2022-10-15 14:14 | disposition home or self-care (01) ==
LOC: ORPAIN 12:48
PROVIDERS: ATTEND Hospitalist
DX: M54.16 Radiculopathy, lumbar region (principal); Z88.5 Allergy status to narcotic agent; Z88.8 Allergy status to other drugs, medicaments and biological substances
CPT/HCPCS: 99152; 64483; J2250; J1100; J3010; Q9966

== ENCOUNTER → 2022-11-07 | Outpatient (CLI) | payer OTHER ==
--- NOTE | 2022-11-07 14:33 | USB ---
Reason for Exam: Additional evaluation requested from abnormal screening. Patient History: Menarche at age 16. First Full-Term at age 26. Postmenopausal. 02/29/2016, Bilateral Implants. Risk Values: Luzma 5 year model risk: 1.3%. NCI Lifetime model risk: 8.0%. Technique: Method: Targeted. Patient Position: Supine. Prior Study Comparison: 10/08/2022 Bilateral MG screening mammo implant/CAD, [facility]. Findings: The whole breast of the left breast, the upper outer quadrant of the right breast, the axilla of both breasts and the retroareolar of both breasts were scanned. Right: Targeted ultrasound upper outer quadrant 9:00 to 12:00 including the subareolar region and axilla. There is a 5 mm benign cyst at 10:00, 4 cm from the nipple, likely mammographic correlate. Underlying breast implant is noted. No other solid or cystic lesion or axillary lymphadenopathy. Left: Whole breast ultrasound including the subareolar region and axilla. There is a small 4 mm benign cyst at the 12:00 position, 3 cm from the nipple. Additionally, there is a benign 8 x 7 x 4 mm cyst cluster at the 11:00 position, 4 cm from the nipple. Underlying breast implant. No other solid or cystic lesion. Overall Assessment: Probably benign, BI-RAD 3 Management: Diagnostic Mammogram of both breasts in 6 months. For areas of nodularity, likely corresponding to cysts/cyst cluster on ultrasound. Patient should continue monthly self breast exams. Results were given to the patient verbally at the time of exam. Electronically signed and approved by: Christie Wharton M.D. Radiologist
--- NOTE | 2022-11-07 15:17 | MM ---
Reason for Exam: Additional evaluation requested from abnormal screening. Last screening mammogram was performed less than 1 month ago. Patient History: Menarche at age 16. First Full-Term at age 26. Postmenopausal. 02/29/2016, Bilateral Implants. Risk Values: Luzma 5 year model risk: 1.3%. NCI Lifetime model risk: 8.0%. Prior Study Comparison: 10/08/2022 Bilateral MG screening mammo implant/CAD, [facility]. Tissue Density: The breast tissue is heterogeneously dense. This may lower the sensitivity of mammography. Findings: Analyzed By CAD. Bilateral retropectoral silicone implants. Areas of bilateral nodularity persists. Microclip medial right breast from prior biopsy. Further ultrasound evaluation recommended. Overall Assessment: Incomplete: need additional imaging evaluation, BI-RAD 0 Management: Diagnostic Breast Ultrasound of both breasts. Electronically signed and approved by: Christie Wharton M.D. Radiologist
== END | disposition home or self-care (01) ==
LOC: RADMAMWWP 13:26
PROVIDERS: ATTEND Family Medicine
DX: R92.8 Other abnormal and inconclusive findings on diagnostic imaging of breast (principal); Z78.0 Asymptomatic menopausal state; Z98.82 Breast implant status
CPT/HCPCS: 77066; 76642; G0279; 77062

== ENCOUNTER → 2023-09-26 | Outpatient (CLI) | payer OTHER ==
--- NOTE | 2023-09-26 13:47 | CT ---
EXAMINATION TYPE: CT chest wo con DATE OF EXAM: 09/26/2023 COMPARISON: 10/08/2022 HISTORY: nodule CT DLP: 290.2 mGycm. Automated Exposure Control for Dose Reduction was Utilized. TECHNIQUE: CT scan of the thorax is performed without IV contrast. FINDINGS: There is stable mild pleural-parenchymal scarring in the lung apices. The 8.2 mm left upper lobe pulmonary nodule is stable. There is a stable 5 to 6 mm nodule in the left lower lobe. A few additional sub-4 mm nodules are seen. No new or suspicious lung mass or nodule is identified. There is no abnormal airspace less consolidated density or abnormal interstitial density. There is no pleural effusion or pneumothorax. The great vessels chest are normal there's no mediastinal, hilar or axillary adenopathy. Limited scanning through the upper abdomen reveals no gross abnormality. The osseous structures are i ntact. There are bilateral breast implants. IMPRESSION: 1. Stable lung nodules as described above. No new or suspicious lung mass or nodule seen. Lung rads c ategory 2 benign findings. Continue routine screening at yearly intervals of this is a high-risk cassi ent. 2. Stable mild pleural-parenchymal scarring in the lung apices. 3. No acute cardiopulmonary disease.
--- NOTE | 2023-10-20 16:22 | P.CEMON ---
7-day Holter monitor shows sinus rhythm and sinus tachycardia Occasionally patient complained of symptoms but only sinus rhythm or sinus tachycardia noted No arrhythmias
--- NOTE | 2023-10-21 13:37 | EM ---
Diagnosis Rapid heartbeat, irregular heartbeat, palpitations, shortness of breath 7-day event monitor shows sinus rhythm and sinus tachycardia No arrhythmias MTDD
== END | disposition home or self-care (01) ==
LOC: RADCTMAIN 12:39
PROVIDERS: ATTEND Family Medicine
DX: J98.4 Other disorders of lung (principal); I49.9 Cardiac arrhythmia, unspecified; R91.8 Other nonspecific abnormal finding of lung field; R00.0 Tachycardia, unspecified; R00.2 Palpitations; R06.02 Shortness of breath
CPT/HCPCS: 71250; 93270

== ENCOUNTER → 2024-04-27 | Outpatient (CLI) | payer OTHER ==
--- NOTE | 2024-04-27 21:05 | MR ---
EXAMINATION TYPE: MR lumbar spine wo con DATE OF EXAM: 04/27/2024 7:39 PM COMPARISON: 11/03/2023 04/19/2022 CLINICAL INDICATION: Female, 59 years old with history of M48.061, M47.516,M54.16; PHH, Low back pain into both sides x5 years TECHNIQUE: Multi planar, multi sequence imaging was performed utilizing: T1-weighted, T2-weighted, a nd turbo inversion recovery imaging of the lumbar spine. IV Contrast: mL (None, if empty) FINDINGS: Alignment: The lumbar vertebral bodies have preserved heights and alignment. Cord: The conus medullaris and the distal spinal cord appear unremarkable with regards to their signa l intensity and morphology. Bones/Discs: Degeneration changes throughout the spine with osteophyte formation and facet joint arth ropathy. Modic endplate changes of the adjoining endplates of all through L4. High T1/ high T2 signal probable vertebral hemangioma in L4 vertebral body. Intervertebral disc signal is maintained. Reacti ve adjoining endplate edema at L3-L4 T12-L1: No evidence of significant spinal canal stenosis or neural foraminal stenosis. L1-L2: No evidence of significant spinal canal stenosis or neural foraminal stenosis. L2-L3: No evidence of significant spinal canal stenosis or neural foraminal stenosis. L3-L4: Disc bulge and facet joint arthropathy result in mild spinal canal and mild bilateral neural f oraminal stenosis. L4-L5: Disc bulge and facet joint arthropathy result in mild spinal canal and mild to moderate bilate ral neural foraminal stenosis. Lateral osteophyte displaces the left nerve series 601 image 8. L5-S1: The disc has a rounded posterior morphology without significant spinal canal stenosis. Facet j oint arthropathy with moderate right and mild left bilateral neural foraminal stenosis. Lateral osteo phyte displaces the right nerve series 601 image 3. No significant spinal canal or neural foraminal stenosis in the remainder of the visualized levels. Other findings: None. IMPRESSION: Overall findings not significantly changed from prior in 2021. 1. No definitive evidence of disc herniation or significant spinal canal stenosis. 2. Moderate disc degeneration with associated osteoarthritic changes no neural foraminal stenosis wo rse with moderate right L5-S1. Additionally there our lateral osteophytes on the left at L4-L5 and on the right at L5-S1 which may mildly displace the extraforaminal nerves. [facility], , 04/27/2024 9:03 PM
== END | disposition home or self-care (01) ==
LOC: RADMRIMAIN 18:58
PROVIDERS: ATTEND Orthopaedic Surgery
DX: M47.26 Other spondylosis with radiculopathy, lumbar region (principal); M48.061 Spinal stenosis, lumbar region without neurogenic claudication; M51.16 Intervertebral disc disorders with radiculopathy, lumbar region; M25.78 Osteophyte, vertebrae
CPT/HCPCS: 72148

== ENCOUNTER → 2024-08-16 | Outpatient (CLI) | payer OTHER ==
[2024-08-16 13:46] VITALS: BP 168/101; PULSE 87; RESP 16; TEMP 97.1
--- NOTE | 2024-08-16 15:42 | P.PAINPG ---
PQRS Measure Charge Sheet Comment: A 59 yr old female with a history of severe and chronic LBP x 2 yrs secondary to radiculopathy, spondylosis with facet arthropathy without myelopathy presents today for evaluation s/p BL TFESI L5-S1 #1. Pt state she experienced 80 % pain relief x 6 mo s/p procedure. Pain level is provoked at 9 /10 in intensity, constant, predominantly axial, localized in the lumbar spine, sharp in character w occasional shooting towards the hips and LEs. Pain is provoked by sitting upright/ standing for periods > 20 min. Pain is alleviated with PT x 6 wks in 2020, physician guided exercises every other day since 2020, medications, topical, manual massage, repositioning and rest. Interventional pain procedures completed include BL TFESI L5-S1 x1 (11/05) Patient is currently on Tyl, Ibu, BioFreeze Patient denies any side effects of the medication(s), denies excessive drowsiness or sleepiness, denies suicidal ideation and reports that the current pain medication is helping to control the pain and improve activities of daily living. Patient denies any motor or sensory deficits. Patient denies any fever or night sweats, denies any change in the bowel movements or urination. Physical Examination: -Constitutional: Cooperative. Not in acute distress . - Neurologic: Cranial nerve II to XII intact. No focal neurological deficits. - Psychatric: Alert & oriented x 3. Matching mood & appropriate affect. Judgment and insight intact. - Musculoskeletal: Cervical spine: Muscle bulk/ tone/ strength in the bilateral upper extremities normal Vertebral body tenderness to palpation over Spurling test positive Distraction test positive Facet loading test positive TTP Thoracic spine Muscle bulk / tone/ strength in the bilateral paraspinal muscles normal Vertebral body tender to palpation over Facet loading test positive TTP Lumbar spine: Motor bulk/ tone/ strength lower extremities , thigh and legs : 5/5 Deep tendon reflexes : Normal Knee Jerk. Normal Ankle Jerk . Vertebral body tenderness to palpation over L5 Tang Test positive BL L5-S1 Lumbar Facet Loading Test positive Straight Leg Raise: positive at 30 degrees right side/ left side Gaenslen's Test positive Sacral spine : Severe tenderness over the Sacroiliac joint: right side / left side Range of motion: Flexion of the lumbar spine <60 degrees Range of motion: Extension of the lumbar spine <20 degrees Gaenslen's Test positive right side / left side Delaney test: positive right side / left side Thigh Thrust Test positive right side / left side Sacral Thrust Test positive right side / left side Assessment and plan: Chronic LBP secondary to lumbar radiculopathy, spondylosis with facet arthropathy without myelopathy Recommendation of BL TFESI L5-S1 #1. Risks, benefits of procedure discussed and pt verbalized understanding. Admits to anticoagulant use or medical history of diabetes. Protocol for discontinuation/ continuation of medications vanessa procedure discussed. All questions answered. I have spent less than 30 minutes on patient care today. Dr Dunn was available by phone for the evaluation of this patient. The time was used to review the medical records including relevant urine studies and Prescription history (MAPs), review of the available imaging, evaluation and examination of the patient, coordination of care with the medical staff and if applicable referring physicians, as well as creation of the medical record - Pain Location Bilateral Lower Back Non-Pharmacological Interventions: Elevation, Heat, Ice, Inactivity, Physical Therapy, Position/Reposition, Relaxation Technique, Sitting Pharmacological Interventions: Epidural, PRN Medication, Topical Medication PQRS Narrative: Hx Alcohol Use (MH) No Home Medications: Ambulatory Orders Cyclobenzaprine [Flexeril] 10 mg PO DIRECTED PRN 02/27/22 Lisinopril-Hctz 10-12.5 mg [Zestoretic 10-12.5] 1 tab PO QAM 02/27/22 Meloxicam [Mobic] 15 mg PO DAILY PRN 02/27/22 PARoxetine HCL [Paxil] 30 mg PO QAM 02/27/22 Zolpidem Tartrate [Ambien] 5 mg PO HS PRN 02/27/22 Meclizine HCl [Dramamine] 25 mg PO Q8H PRN #20 tab 07/18/22 Beet Root 1 tab PO DAILY 10/10/22 Krill/Om-3/Dha/Epa/Phospho/Ast [Megared [place]-3 Krill 1,000 mg] 1 each PO DAILY 10/10/22 amLODIPine [Norvasc] 5 mg PO DAILY 10/10/22 diazePAM [Valium] 5 mg PO DAILY 1 Days #2 tab 08/16/24 Controlled Substance Measures - Controlled Substance Measures Is patient prescribed a controlled substance at discharge?: Yes When asked, does pt state using other controlled substances?: Yes If prescribed controlled substance>3 days was MAPS reviewed?: Prescribed <3 Days
== END ==
LOC: PNWHC3 13:19
PROVIDERS: ATTEND Specialist
DX: M47.26 Other spondylosis with radiculopathy, lumbar region (principal); G89.29 Other chronic pain; Z88.5 Allergy status to narcotic agent
CPT/HCPCS: 99211

== ENCOUNTER → 2024-09-17 | Day surgery (SDC) | payer OTHER ==
[2024-09-03 13:13] VITALS: BMI 24.3
[~2024-09-17] MED LIST changes: +IOPAMIDOL M200 10 ML VIAL ONE; +methylPREDNISolone ACETATE 80 MG/ML 1 ML VIAL ONE
--- NOTE | 2024-09-17 13:55 | P.PCN ---
Date of Procedure: 09/17/24 Procedure(s) Performed: PREOPERATIVE DIAGNOSIS: 1-Lumbar radiculopathy . 2-lumbar foraminal stenosis. 3-lumbar spondylosis with lumbar facet arthropathy without myelopathy POSTOPERATIVE DIAGNOSIS: 1-lumbar radiculopathy. 2-lumbar foraminal stenosis. 3-lumbar spondylosis with facet arthropathy without myelopathy PROCEDURE 1. Transforaminal epidural steroid injection under fluoroscopic guidance at bilateral L5-S1 level. (Fluoroscopy images stored on file in the radiology Department ) 2. Lumbar epidurogram . ANESTHESIA: Local with 1% lidocaine 4 ml. EBL: Minimal PROCEDURE INDICATION: The patient with low back pain and radiculopathy symptoms unresponsive to conservative treatment. PROCEDURE DESCRIPTION / TECHNIQUE: The patient was seen and identified in the preoperative area. Risks, benefits, complications, and alternatives were discussed with the patient. The patient agreed to proceed with the procedure and signed the consent. IV was started, and vital signs were stable. Patient was taken to the OR and time out was completed. The patient was placed in the prone position on procedure table and a pillow was placed under the abdomen to reduce lumbar lordosis. The lumbosacral area was prepped and draped in the usual sterile fashion. Critical pause was taken. Vital signs were closely monitored during the procedure. Using oblique fluoroscopy, the chin of the ``Florentino dog at L4-5 level was identified, and the skin and deeper tissues just below was localized with 1% lidocaine. Subsequently, a 22-gauge 5-inch spinal needle was advanced under a tunneled view fluoroscopic guidance just underneath the chin of the ``Florentino dog at the right L5-S1 Under lateral fluoroscopy, the needle was then advanced to the posterior border of the interforaminal space. After negative aspiration of CSF and blood and with no paresthesias, 1 mL Isovue 200 contrast dye was injected excellent epidurogram and outlining of the nerve root Subsequently, 2 mL of block solution containing 40 mg Depo-Medrol and 2 mL of 0.9% normal saline PF was injected. Needle was removed and the same procedure was repeated at the left L5-S1 level. At the end of the procedure, skin was cleansed, and bandages were applied. COMPLICATIONS:none DISPOSITION / PLANS: The patient was placed in a supine position and transferred to the recovery area in a stable condition for observation. There was no evidence of lower extremity motor or sensory deficit after the procedure. Patient was discharged from the recovery room after meeting discharge criteria. Home discharge instructions were given to the patient by the staff. The patient was reexamined prior to discharge.
[2024-09-17 14:03] VITALS: TEMP 97.2
--- NOTE | 2024-09-17 14:07 | FL ---
EXAMINATION TYPE: FL guided pain mgmt statistic DATE OF EXAM: 09/17/2024 1:56 PM COMPARISON: Pre Operative Images if available both CT/MRI or plain film CLINICAL INDICATION: Female, 59 years old with history of PAIN; TECHNIQUE: FL guided pain mgmt statistic, multiple fluoroscopic images provided for procedure. DAP: 0.34869 mGym2 Gycm2 uGym2 cGycm2 or equivalent. FINDINGS: Fluoroscopic images during injection for pain management demonstrate multilevel degeneration changes throughout the spine. No evidence for fracture. No acute process identified. IMPRESSION: 1. No evidence for intraoperative complication. 2. Please see the operative/procedural note for further details. [facility], , 09/17/2024 2:04 PM
[2024-09-17 14:28] VITALS: BP 151/94; PULSE 89; RESP 14
== END ==
LOC: ORPAIN 12:30
PROVIDERS: ATTEND Specialist
DX: M48.061 Spinal stenosis, lumbar region without neurogenic claudication (principal); M47.26 Other spondylosis with radiculopathy, lumbar region; Z88.6 Allergy status to analgesic agent
CPT/HCPCS: 64483; Q9966; J1010

== ENCOUNTER → 2024-10-28 | Outpatient (CLI) | payer OTHER ==
[2024-10-28 14:28] VITALS: BP 161/96; PULSE 112; RESP 18; TEMP 97.9
--- NOTE | 2024-10-28 16:05 | P.PAINPG ---
Objective - Vital Signs Vital signs: Vital Signs Temp 97.9 F 10/28/24 14:23 Pulse 112 H 10/28/24 14:23 Resp 18 10/28/24 14:23 BP 161/96 10/28/24 14:23 Pulse Ox 98 10/28/24 14:23 FiO2 Intake & Output 10/27/24 10/28/24 10/28/24 18:59 06:59 18:59 Weight 80.286 kg PQRS Measure Charge Sheet Comment: A 59 yr old female with a history of severe and chronic LBP > 2 yrs secondary to L3-S1 radiculopathy, spondylosis with facet arthropathy without myelopathy presents today for evaluation s/p BL TFESI L5-S1 #1. Pt state she experienced 50 % pain relief x 1 mo s/p procedure. Pain level is provoked at 4 /10 in intensity, constant, predominantly axial, localized in the lumbar spine, sharp in character w occasional shooting towards the hips and LEs. Pain is provoked by sitting upright/ standing for periods > 20 min. Pain is alleviated with PT x 6 wks in 2020, physician guided exercises every other day since 2020, medications, topical, manual massage, repositioning and rest. Interventional pain procedures completed include BL TFESI L5-S1 x1 (11/05) Patient is currently on Tyl, Ibu, BioFreeze Patient denies any side effects of the medication(s), denies excessive drowsiness or sleepiness, denies suicidal ideation and reports that the current pain medication is helping to control the pain and improve activities of daily living. Patient denies any motor or sensory deficits. Patient denies any fever or night sweats, denies any change in the bowel movements or urination. Physical Examination: -Constitutional: Cooperative. Not in acute distress . - Neurologic: Cranial nerve II to XII intact. No focal neurological deficits. - Psychatric: Alert & oriented x 3. Matching mood & appropriate affect. Judgment and insight intact. - Musculoskeletal: Cervical spine: Muscle bulk/ tone/ strength in the bilateral upper extremities normal Vertebral body tenderness to palpation over Spurling test positive Distraction test positive Facet loading test positive TTP Thoracic spine Muscle bulk / tone/ strength in the bilateral paraspinal muscles normal Vertebral body tender to palpation over Facet loading test positive TTP Lumbar spine: Motor bulk/ tone/ strength lower extremities , thigh and legs : 5/5 Deep tendon reflexes : Normal Knee Jerk. Normal Ankle Jerk . Vertebral body tenderness to palpation over L5 Tang Test positive BL L5-S1 Lumbar Facet Loading Test positive Straight Leg Raise: positive at 30 degrees right side/ left side Gaenslen's Test positive Sacral spine : Severe tenderness over the Sacroiliac joint: right side / left side Range of motion: Flexion of the lumbar spine <60 degrees Range of motion: Extension of the lumbar spine <20 degrees Gaenslen's Test positive right side / left side Delaney test: positive right side / left side Thigh Thrust Test positive right side / left side Sacral Thrust Test positive right side / left side Assessment and plan: Chronic LBP secondary to L3-S1 radiculopathy, spondylosis with facet arthropathy without myelopathy [place] 7.5/325mg #18 NR. Use, side effects, adverse reactions, safe storage discussed. Will consider repeat KEYLA vs orthopedic surgery intervention at a later time. All questions answered. I have spent less than 30 minutes on patient care today. Dr Dunn was available by phone for the evaluation of this patient. The time was used to review the medical records including relevant urine studies and Prescription history (MAPs), review of the available imaging, evaluation and examination of the patient, coordination of care with the medical staff and if applicable referring physicians, as well as creation of the medical record PQRS Narrative: Blood Pressure 161/96 Pain Intensity [Lower Back] 4 Scale Used Numeric (1 - 10) Hx Alcohol Use (MH) No Home Medications: Ambulatory Orders Lisinopril-Hctz 10-12.5 mg [Zestoretic 10-12.5] 1 tab PO QAM 02/27/22 PARoxetine HCL [Paxil] 30 mg PO QAM 02/27/22 Zolpidem Tartrate [Ambien] 5 mg PO HS PRN 02/27/22 amLODIPine [Norvasc] 5 mg PO DAILY 10/10/22 diazePAM [Valium] 5 mg PO DAILY PRN 09/15/24 HYDROcodone/APAP 7.5-325MG [[place] 7.5-325] 1 tab PO Q4H PRN 3 Days #18 tab 10/28/24 Controlled Substance Measures - Controlled Substance Measures Is patient prescribed a controlled substance at discharge?: Yes When asked, does pt state using other controlled substances?: No If prescribed controlled substance>3 days was MAPS reviewed?: Prescribed <3 Days
== END ==
LOC: PNWHC3 14:03
PROVIDERS: ATTEND Specialist
DX: M47.26 Other spondylosis with radiculopathy, lumbar region (principal); G89.29 Other chronic pain; Z79.891 Long term (current) use of opiate analgesic; Z88.5 Allergy status to narcotic agent
CPT/HCPCS: 99211